=== PATIENT | female | born 1970 | race Caucasian/White ===

== ENCOUNTER 2020-05-12 00:56 | Emergency (ER) | payer OTHER ==
[~2020-05-12] VITALS: Ht 172.7 cm; Wt 87.3 kg
[2020-05-12 01:48] LABS: BASOPHILS % (AUTO) 1.1 % (0-1); EOSINOPHILS # (AUTO) 0.1 X10'3 (0-0.9); EOSINOPHILS % (AUTO) 1.5 % (0-6); HEMATOCRIT 41.2 % (35.0-45.0); HEMOGLOBIN 14.4 g/dl (12.0-16.0); LYMPHOCYTES # (AUTO) 1.6 X10'3 (1.1-4.8); LYMPHOCYTES % (AUTO) 44.7 % (21-51); MEAN CORPUSCULAR HEMOGLOBIN 36.1 PG (27.0-31.0); MEAN CORPUSCULAR HGB CONC 34.9 g/dL (33.0-36.5); MEAN CORPUSCULAR VOLUME 103.4 FL (78-98); MEAN PLATELET VOLUME 6.8 FL (7.4-10.4); MONOCYTES # (AUTO) 0.4 X10'3 (0-0.9); MONOCYTES % (AUTO) 10.5 % (2-12); NEUTROPHILS # (AUTO) 1.5 X10'3 (1.8-7.7); NEUTROPHILS % (AUTO) 42.2 % (42-75); PLATELET COUNT 106 X10'3 (140-440); RED BLOOD COUNT 3.98 X10'6 (4.20-5.60); RED CELL DISTRIBUTION WIDTH 15.9 % (11.5-14.5); WHITE BLOOD COUNT 3.7 X10'3 (4.5-11.0)
[2020-05-12 01:57] LABS: ALANINE AMINOTRANSFERASE 96 U/L (12-78); ALBUMIN 4.1 G/DL (3.4-5.0); ALBUMIN/GLOBULIN RATIO 0.9 (1.1-1.5); ALKALINE PHOSPHATASE 84 IU/L (46-116); ANION GAP 12 (8-16); ASPARTATE AMINO TRANSFERASE 146 U/L (10-37); BILIRUBIN,TOTAL 0.8 MG/DL (0.1-1.0); BLOOD UREA NITROGEN 11 MG/DL (7-18); BUN/CREATININE RATIO 14.1 (6.6-38.0); CALCIUM 9.1 MG/DL (8.5-10.1); CHLORIDE 105 MMOL/L (99-107); CREATININE 0.78 MG/DL (0.40-0.90); POTASSIUM 4.1 MMOL/L (3.5-5.1); SODIUM 142 MMOL/L (135-145); TOTAL CARBON DIOXIDE 25.5 MMOL/L (24-32); TOTAL PROTEIN 8.9 G/DL (6.4-8.2); eGFR 78 ML/MIN
[2020-05-12 02:00] LABS: GLUCOSE 93 MG/DL (70-104)
[2020-05-12 02:06] LABS: ETHANOL 0.279 GM/DL (0.0-0.010)
[2020-05-12 02:35] LABS: URINE HCG NEGATIVE (NEG)
[2020-05-12 02:46] LABS: URINE AMPHETAMINE SCREEN NEGATIVE (Neg); URINE BARBITUATE SCREEN NEGATIVE (Neg); URINE BENZODIAZEPINES SCREEN NEGATIVE (Neg); URINE CANNABINOID SCREEN NEGATIVE (Neg); URINE COCAINE SCREEN NEGATIVE (Neg); URINE METHADONE SCREEN NEGATIVE (Neg); URINE OPIATE SCREEN NEGATIVE (Neg); URINE PHENCYCLIDINE SCREEN NEGATIVE (Neg)
[2020-05-12] MEDS ORDERED: zolpidem 5mg tablet PO ONE (03:05)
--- NOTE | 2020-05-12 09:21 | NUR ---
TC FROM DR. BYNUM STATING HE WILL BE HERE TO SEE PATIENT IN APPROX. [address] WADSWORTH NOTIFIED OF THIS COMMUNICATION.
[2020-05-12] MEDS ORDERED: albuterol 2.5 MG/3 ML nebule NEB ONE (10:20)
[2020-05-12] MEDS ORDERED: LORazepam 1 MG tablet PO ONE (10:20)
--- NOTE | 2020-05-12 10:35 | NUR ---
RT IN ROOM GIVING NEBULIZER
[2020-05-12] MEDS ORDERED: gabapentin 300mg capsule PO ONE (12:20)
[2020-05-12] MEDS ORDERED: GABA300C PO (12:27)
[2020-05-12 12:47] VITALS: BP 143/101
== END 2020-05-12 12:48 | disposition home or self-care (01) ==
LOC: ER 00:57
DX: F10.20 Alcohol dependence, uncomplicated (principal); F32.9 Major depressive disorder, single episode, unspecified; F41.9 Anxiety disorder, unspecified; Z88.8 Allergy status to other drugs, medicaments and biological substances; Z79.899 Other long term (current) drug therapy; Y90.0 Blood alcohol level of less than 20 mg/100 ml
CPT/HCPCS: 36415; 80053; 80305; 80320; 81025; 84439; 84443; 85025; 94640; 94760; 99285

== ENCOUNTER 2020-05-15 15:48 | Outpatient (CLI) | payer BC ==
[~2020-05-15 15:48] MED LIST: GABA300C PO
== END 2020-05-15 23:59 | disposition home or self-care (01) ==
LOC: LAB 15:48
PROVIDERS: ATTEND Specialist
DX: E03.9 Hypothyroidism, unspecified (principal); Z53.21 Procedure and treatment not carried out due to patient leaving prior to being seen by health care provider; G47.00 Insomnia, unspecified; G62.9 Polyneuropathy, unspecified; E34.9 Endocrine disorder, unspecified

== ENCOUNTER 2020-05-15 16:03 | Outpatient (CLI) | payer BC ==
[2020-05-15 16:32] LABS: BASOPHILS % (AUTO) 0.8 % (0-1); EOSINOPHILS # (AUTO) 0.1 X10'3 (0-0.9); EOSINOPHILS % (AUTO) 1.3 % (0-6); HEMATOCRIT 41.4 % (35.0-45.0); HEMOGLOBIN 14.3 g/dl (12.0-16.0); LYMPHOCYTES # (AUTO) 1.2 X10'3 (1.1-4.8); LYMPHOCYTES % (AUTO) 21.4 % (21-51); MEAN CORPUSCULAR HEMOGLOBIN 36.1 PG (27.0-31.0); MEAN CORPUSCULAR HGB CONC 34.5 g/dL (33.0-36.5); MEAN CORPUSCULAR VOLUME 104.7 FL (78-98); MEAN PLATELET VOLUME 7.8 FL (7.4-10.4); MONOCYTES # (AUTO) 0.5 X10'3 (0-0.9); MONOCYTES % (AUTO) 9.2 % (2-12); NEUTROPHILS # (AUTO) 3.8 X10'3 (1.8-7.7); NEUTROPHILS % (AUTO) 67.3 % (42-75); PLATELET COUNT 116 X10'3 (140-440); RED BLOOD COUNT 3.96 X10'6 (4.20-5.60); RED CELL DISTRIBUTION WIDTH 16.1 % (11.5-14.5); WHITE BLOOD COUNT 5.6 X10'3 (4.5-11.0)
[2020-05-15 16:39] LABS: PARTIAL THROMBOPLASTIN TIME 28 SECONDS (22-32)
== END 2020-05-15 23:59 | disposition home or self-care (01) ==
LOC: LAB 16:03
PROVIDERS: ATTEND Otolaryngology
DX: D69.1 Qualitative platelet defects (principal); F10.20 Alcohol dependence, uncomplicated; F32.9 Major depressive disorder, single episode, unspecified; F41.9 Anxiety disorder, unspecified
CPT/HCPCS: 36415; 85025; 85576; 85610; 85730

== ENCOUNTER 2021-01-10 09:29 | Emergency (ER) | payer BC ==
[~2021-01-10] VITALS: Ht 170.2 cm; Wt 86.4 kg
[2021-01-10] MEDS ORDERED: pantoprazole 40 MG vial IV ONE (09:45)
[2021-01-10] MEDS ORDERED: normal saline 1000ml 1,000 ML IV ONE (09:45)
[2021-01-10] MEDS ORDERED: famotidine/PF 10 mg/ml inj IV ONE (09:45)
[2021-01-10] MEDS ORDERED: ondansetron/PF 4mg/2ml inj IV ONE (09:45)
--- NOTE | 2021-01-10 10:16 | NUR ---
PATIENT'S MOTHER AT BEDSIDE WHO IS GOOD WITH HER AND HELPS CALM HER YELLING OUT
[2021-01-10 10:17] LABS: BASOPHILS % (AUTO) 0.7 % (0-1); EOSINOPHILS % (AUTO) 0.9 % (0-6); HEMATOCRIT 39.1 % (35.0-45.0); HEMOGLOBIN 13.5 g/dl (12.0-16.0); LYMPHOCYTES # (AUTO) 1.5 X10'3 (1.1-4.8); MEAN CORPUSCULAR HEMOGLOBIN 36.5 PG (27.0-31.0); MEAN CORPUSCULAR HGB CONC 34.6 g/dL (33.0-36.5); MEAN CORPUSCULAR VOLUME 105.5 FL (78-98); MEAN PLATELET VOLUME 7.7 FL (7.4-10.4); MONOCYTES # (AUTO) 0.5 X10'3 (0-0.9); MONOCYTES % (AUTO) 12.1 % (2-12); NEUTROPHILS # (AUTO) 1.8 X10'3 (1.8-7.7); NEUTROPHILS % (AUTO) 47.3 % (42-75); PLATELET COUNT 60 X10'3 (140-440); RED BLOOD COUNT 3.71 X10'6 (4.20-5.60); RED CELL DISTRIBUTION WIDTH 13.6 % (11.5-14.5); WHITE BLOOD COUNT 3.9 X10'3 (4.5-11.0)
--- NOTE | 2021-01-10 10:19 | NUR ---
ELIZA CRYING PER MOTHER PATIENT HAS BEEN DRINKING "ON/OFF" FOR 30 YEARS AND HAS BEEN "SICK" FOR THE LAST THREE WEEKS LAST ETOH THIS AM AT 0800
[2021-01-10 10:22] LABS: D-DIMER 0.72 MG/L FEU (0-0.50)
[2021-01-10 10:29] LABS: ALANINE AMINOTRANSFERASE 101 U/L (12-78); ALBUMIN 3.6 G/DL (3.4-5.0); ALBUMIN/GLOBULIN RATIO 0.8 (1.1-1.5); ALKALINE PHOSPHATASE 123 IU/L (46-116); ANION GAP 12 (8-16); ASPARTATE AMINO TRANSFERASE 240 U/L (10-37); BILIRUBIN,TOTAL 1.1 MG/DL (0.1-1.0); BLOOD UREA NITROGEN 8 MG/DL (7-18); BUN/CREATININE RATIO 13.3 (6.6-38.0); CALCIUM 8.6 MG/DL (8.5-10.1); CHLORIDE 105 MMOL/L (99-107); GLUCOSE 127 MG/DL (70-104); POTASSIUM 3.8 MMOL/L (3.5-5.1); SODIUM 143 MMOL/L (135-145); TOTAL CARBON DIOXIDE 26.3 MMOL/L (24-32); eGFR > 90 ML/MIN
[2021-01-10 10:36] LABS: TROPONIN I < 0.04 NG/ML (0.0-0.05)
[2021-01-10 10:49] LABS: ETHANOL 0.451 GM/DL (0.0-0.010)
[2021-01-10 10:54] LABS: URINE AMPHETAMINE SCREEN NEGATIVE (Neg); URINE BARBITUATE SCREEN NEGATIVE (Neg); URINE BENZODIAZEPINES SCREEN NEGATIVE (Neg); URINE CANNABINOID SCREEN NEGATIVE (Neg); URINE COCAINE SCREEN NEGATIVE (Neg); URINE METHADONE SCREEN NEGATIVE (Neg); URINE OPIATE SCREEN NEGATIVE (Neg); URINE PHENCYCLIDINE SCREEN NEGATIVE (Neg)
[2021-01-10 10:57] LABS: CLARITY,URINE CLEAR (Clear); COLOR,URINE YELLOW (Yellow); GLUCOSE, URINE NEGATIVE (Neg); KETONES,URINE NEGATIVE (Neg); LEUKOCYTE ESTERASE ,URINE NEGATIVE (Neg); NITRITES, URINE NEGATIVE (Neg); OCCULT BLOOD,URINE NEGATIVE (Neg); PROTEIN,URINE NEGATIVE (Neg); UROBILINOGEN,URINE 0.2 E.U/dL (0.2-1.0)
[2021-01-10 11:01] LABS: UA COLLECTION TYPE CLN CATCH MIDSTREAM
--- NOTE | 2021-01-10 11:25 | NUR ---
Yunier castellanos in [facility] - 01/10/21 at 1125 by MANOLO KEVYN ANNE IN ROOM
[2021-01-10] MEDS ORDERED: iohexol 350MG/ML 100ml bottle IV ONE (11:53)
--- NOTE | 2021-01-10 12:25 | NUR ---
PATIENT STILL STATING "I CANT BREATHE", AWARE
--- NOTE | 2021-01-10 12:25 | NUR ---
BACK FROM CT OF CHEST
--- NOTE | 2021-01-10 12:29 | NUR ---
MOTHER CALLED AN INPATIENT FACILITY CALLED [facility] [place] [facility] [place] : A [facility] AND THE PATIENT WITH HER MOTHER DID AN INTAKE ASSESSMENT
--- NOTE | 2021-01-10 12:32 | NUR ---
MOTHER HOA NOGUEIRA CELL [phone]
--- NOTE | 2021-01-10 13:31 | NUR ---
MOTHER AT BEDSIDE. MOTHER AND PATIENT VERBALIZED UNDERSTANDING OF DISCAHRGE PLAN. PATIENT WAS SEEN FOR SOB AND ETOH INTOXICATION. PATIENT AND MOTHER WITH PATIENT'S PERMISSION GIVEN INFORMATION BOTH VERBALIZED DISCHARGE INSTRUCTIONS. PATIENT WILL FOLLOW UP WITH JORGE NAPIER AT [facility].
--- NOTE | 2021-01-10 13:34 | NUR ---
MOTHER ARRANGED FOR PATIENT TO BE TRANSPORTED FROM HER HOME TO [facility]: [phone] WITH [facility]. PATIENT IS GOING THERE THIS AFTERNOON FOR ETOH DETOX.
[2021-01-10 13:35] VITALS: BP 128/81
== END 2021-01-10 13:39 | disposition home or self-care (01) ==
LOC: ER 09:30
DX: R06.02 Shortness of breath (principal); R11.2 Nausea with vomiting, unspecified; F10.129 Alcohol abuse with intoxication, unspecified; F41.9 Anxiety disorder, unspecified; F32.9 Major depressive disorder, single episode, unspecified; Z88.8 Allergy status to other drugs, medicaments and biological substances; Z79.899 Other long term (current) drug therapy; Y90.0 Blood alcohol level of less than 20 mg/100 ml
CPT/HCPCS: 71045; 71275; 80053; 80305; 80320; 81003; 83880; 84145; 84484; 85025; 85379; 93005; 96361; 96374; 96375; 99285; C9113; J2405; J3490; J7030; Q9967

== ENCOUNTER 2021-05-09 16:51 | Emergency (ER) | payer BC ==
[2021-05-09 17:02] VITALS: BP 136/98
[2021-05-09 18:00] LABS: BASOPHILS # (AUTO) 0.1 X10'3 (0-0.2); EOSINOPHILS # (AUTO) 0.1 X10'3 (0-0.9); HEMATOCRIT 41.9 % (35.0-45.0); HEMOGLOBIN 14.7 g/dl (12.0-16.0); LYMPHOCYTES # (AUTO) 1.7 X10'3 (1.1-4.8); MEAN CORPUSCULAR HEMOGLOBIN 36.5 PG (27.0-31.0); MEAN CORPUSCULAR HGB CONC 35.2 g/dL (33.0-36.5); MEAN CORPUSCULAR VOLUME 103.8 FL (78-98); MONOCYTES # (AUTO) 0.5 X10'3 (0-0.9); MONOCYTES % (AUTO) 9.6 % (2-12); NEUTROPHILS # (AUTO) 3.1 X10'3 (1.8-7.7); NEUTROPHILS % (AUTO) 57.4 % (42-75); PLATELET COUNT 107 X10'3 (140-440); RED BLOOD COUNT 4.03 X10'6 (4.20-5.60); RED CELL DISTRIBUTION WIDTH 12.3 % (11.5-14.5); WHITE BLOOD COUNT 5.4 X10'3 (4.5-11.0)
[2021-05-09 18:08] LABS: ALANINE AMINOTRANSFERASE 84 U/L (12-78); ALBUMIN/GLOBULIN RATIO 0.9 (1.1-1.5); ALKALINE PHOSPHATASE 109 IU/L (46-116); ANION GAP 13 (8-16); ASPARTATE AMINO TRANSFERASE 174 U/L (10-37); BILIRUBIN,TOTAL 1.4 MG/DL (0.1-1.0); BLOOD UREA NITROGEN 10 MG/DL (7-18); BUN/CREATININE RATIO 15.2 (6.6-38.0); CALCIUM 8.7 MG/DL (8.5-10.1); CHLORIDE 105 MMOL/L (99-107); CREATININE 0.66 MG/DL (0.40-0.90); GLUCOSE 123 MG/DL (70-104); POTASSIUM 3.9 MMOL/L (3.5-5.1); SODIUM 143 MMOL/L (135-145); TOTAL CARBON DIOXIDE 25.4 MMOL/L (24-32); TOTAL PROTEIN 8.7 G/DL (6.4-8.2); eGFR > 90 ML/MIN
== END 2021-05-09 21:19 | disposition left against medical advice (07) ==
LOC: ER 16:52
DX: R06.02 Shortness of breath (principal); Z53.21 Procedure and treatment not carried out due to patient leaving prior to being seen by health care provider
CPT/HCPCS: 36415; 71045; 80053; 83880; 84484; 85025; 93005

== ENCOUNTER 2021-05-09 22:54 | Emergency (ER) | payer BC ==
[~2021-05-09] VITALS: Ht 172.7 cm; Wt 90.9 kg
[2021-05-09 23:06] VITALS: BP 157/100
== END 2021-05-09 23:33 | disposition left against medical advice (07) ==
LOC: ER 22:55
DX: R06.02 Shortness of breath (principal); F41.9 Anxiety disorder, unspecified; Z53.21 Procedure and treatment not carried out due to patient leaving prior to being seen by health care provider

== ENCOUNTER 2021-05-20 09:49 | Emergency (ER) | payer BC ==
[~2021-05-20] VITALS: Ht 172.7 cm; Wt 90.1 kg
[2021-05-20 09:59] VITALS: BP 139/99
[2021-05-20] MEDS ORDERED: magnesium oxide 400mg tablet PO ONE (10:20)
[2021-05-20] MEDS ORDERED: PROM12.512 PO (10:24)
== END 2021-05-20 10:40 | disposition home or self-care (01) ==
LOC: ER 09:50
DX: F10.129 Alcohol abuse with intoxication, unspecified (principal); R11.10 Vomiting, unspecified; F41.9 Anxiety disorder, unspecified; F32.9 Major depressive disorder, single episode, unspecified; Z72.89 Other problems related to lifestyle; Z88.8 Allergy status to other drugs, medicaments and biological substances; Z79.899 Other long term (current) drug therapy; Y90.9 Presence of alcohol in blood, level not specified
CPT/HCPCS: 99283

== ENCOUNTER 2021-12-24 04:15 | Emergency (ER) | payer BC, OTHER ==
[~2021-12-24] VITALS: Ht 172.7 cm; Wt 86.4 kg
[~2021-12-24 04:15] MED LIST changes: +PROM12.512 PO
[2021-12-24] MEDS ORDERED: LIDOcaine 0.5% W/epiNEPHrine 1:200,000 50ml vial IJ ONE (04:20)
[2021-12-24] MEDS ORDERED: LIDOcaine 1% w/EPI 1:100,000 30ml vial (MDV) IJ ONE (04:25)
[2021-12-24] MEDS ORDERED: LORazepam 1 MG tablet PO ONE (04:55)
[2021-12-24 04:59] VITALS: BP 143/101
--- NOTE | 2021-12-24 05:01 | NUR ---
Doctor applied Rhino rocket and gave Epi with Lidocaine during procedure. Patient tolerated well.
--- NOTE | 2021-12-24 05:21 | NUR ---
CALLED [facility] FOR PT @8331 ETA IS 40 MIN
== END 2021-12-24 05:41 | disposition home or self-care (01) ==
LOC: ER 04:16
DX: R04.0 Epistaxis (principal); F10.129 Alcohol abuse with intoxication, unspecified; R11.10 Vomiting, unspecified; F41.9 Anxiety disorder, unspecified; F32.A Depression, unspecified; Z72.89 Other problems related to lifestyle; Z88.8 Allergy status to other drugs, medicaments and biological substances; Z79.899 Other long term (current) drug therapy; Y90.9 Presence of alcohol in blood, level not specified
CPT/HCPCS: 30901; 99284; J3490

== ENCOUNTER 2021-12-25 21:06 | Emergency (ER) | payer OTHER | END 2021-12-26 00:13 | disposition left against medical advice (07) | LOC: ER 21:07 | DX: Z53.21 Procedure and treatment not carried out due to patient leaving prior to being seen by health care provider (principal) ==

== ENCOUNTER 2021-12-26 09:15 | Emergency (ER) | payer OTHER ==
[~2021-12-26] VITALS: Ht 172.7 cm; Wt 86.4 kg
[2021-12-26 09:25] VITALS: BP 146/102
[2021-12-26] MEDS ORDERED: cloNIDine 0.1 mg tablet PO ONE (09:30)
== END 2021-12-26 11:07 | disposition home or self-care (01) ==
LOC: ER 09:15
DX: Z46.2 Encounter for fitting and adjustment of other devices related to nervous system and special senses (principal); I10 Essential (primary) hypertension; R04.0 Epistaxis; J34.89 Other specified disorders of nose and nasal sinuses; R00.0 Tachycardia, unspecified; F41.9 Anxiety disorder, unspecified; F32.A Depression, unspecified; Z72.89 Other problems related to lifestyle; Z88.8 Allergy status to other drugs, medicaments and biological substances; Z79.899 Other long term (current) drug therapy
CPT/HCPCS: 99281

== ENCOUNTER 2022-06-07 07:04 | Emergency (ER) | payer OTHER ==
[~2022-06-07] VITALS: Ht 172.7 cm; Wt 86.4 kg
[~2022-06-07 07:04] MED LIST changes: +CLON-568 PO; -GABA300C PO; +LEVO112T5 PO; -PROM12.512 PO; +PROP10TA10 PO; +SECU150S2 IM; +ZOLP10TA PO
[2022-06-07] MEDS ORDERED: ondansetron/PF 4mg/2ml inj IV ONE (07:30)
[2022-06-07] MEDS ORDERED: pantoprazole 40 MG vial IV ONE (07:30)
[2022-06-07] MEDS ORDERED: etomidate 2mg/ml inj. ONE (07:30)
[2022-06-07] MEDS ORDERED: 0.9 % SODIUM CHLORIDE 10 ML VIAL ONE (07:30)
--- NOTE | 2022-06-07 07:32 | NUR ---
Pt has c-collar on, noted bruises with redness to genaralized areas of body. No obvious deformities noted. Pt connected to telemetry monitor for further observation.
[2022-06-07] MEDS ORDERED: normal saline 1000ml 1,000 ML IV SCH (07:35)
[2022-06-07] MEDS ORDERED: pantoprazole 40MG/NS 100ML BAG 100 ML IV ONE (07:40)
[2022-06-07] MEDS ORDERED: folic acid 1mg/0.2ml inj IV ONE (07:40)
[2022-06-07] MEDS ORDERED: thiamine 100mg/ml 2ml inj. IV ONE (07:40)
[2022-06-07] MEDS ORDERED: acetaminophen 325mg tablet PO ONE (07:55)
[2022-06-07] MEDS ORDERED: MVI, adult No.4 with vit. K 10 ML in dextrose 5% water 500ml 500 ML IV SCH ×2 (08:00)
[2022-06-07 08:20] LABS: BASOPHILS % (AUTO) 1.1 % (0-1); EOSINOPHILS % (AUTO) 0.3 % (0-6); HEMATOCRIT 36.7 % (35.0-45.0); HEMOGLOBIN 12.8 g/dl (12.0-16.0); LYMPHOCYTES # (AUTO) 0.9 X10'3 (1.1-4.8); LYMPHOCYTES % (AUTO) 27.2 % (21-51); MEAN CORPUSCULAR HEMOGLOBIN 36.1 PG (27.0-31.0); MEAN CORPUSCULAR HGB CONC 34.8 g/dL (33.0-36.5); MEAN CORPUSCULAR VOLUME 103.7 FL (78-98); MEAN PLATELET VOLUME 7.9 FL (7.4-10.4); MONOCYTES # (AUTO) 0.4 X10'3 (0-0.9); MONOCYTES % (AUTO) 10.6 % (2-12); NEUTROPHILS # (AUTO) 2.1 X10'3 (1.8-7.7); NEUTROPHILS % (AUTO) 60.8 % (42-75); PLATELET COUNT 52 X10'3 (140-440); RED BLOOD COUNT 3.54 X10'6 (4.20-5.60); RED CELL DISTRIBUTION WIDTH 13.6 % (11.5-14.5); WHITE BLOOD COUNT 3.5 X10'3 (4.5-11.0)
[2022-06-07 08:34] LABS: APTT 31 SECONDS (22-32)
[2022-06-07 08:39] LABS: ALANINE AMINOTRANSFERASE 58 U/L (12-78); ALBUMIN 3.4 G/DL (3.4-5.0); ALBUMIN/GLOBULIN RATIO 0.8 (1.1-1.5); ALKALINE PHOSPHATASE 130 IU/L (46-116); ANION GAP 13 (8-16); ASPARTATE AMINO TRANSFERASE 192 U/L (10-37); BILIRUBIN,TOTAL 3.8 MG/DL (0.1-1.0); BLOOD UREA NITROGEN 10 MG/DL (7-18); BUN/CREATININE RATIO 18.5 (6.6-38.0); CALCIUM 8.2 MG/DL (8.5-10.1); CHLORIDE 102 MMOL/L (99-107); CREATININE 0.54 MG/DL (0.40-0.90); GLUCOSE 96 MG/DL (70-104); POTASSIUM 4.1 MMOL/L (3.5-5.1); SODIUM 141 MMOL/L (135-145); TOTAL CARBON DIOXIDE 25.7 MMOL/L (24-32); TOTAL PROTEIN 7.9 G/DL (6.4-8.2); eGFR > 90 ML/MIN
[2022-06-07 08:41] LABS: LIPASE 232 U/L (73-393); MAGNESIUM 1.9 MG/DL (1.5-2.4)
[2022-06-07 08:42] LABS: ETHANOL 0.359 GM/DL (0.0-0.010)
--- NOTE | 2022-06-07 08:51 | NUR ---
Pt transported to CT.
--- NOTE | 2022-06-07 09:00 | NUR ---
pt back from ct. amira ocasio rn. pt completed altered and nonverbal at this time. kiah stephens made aware of pt change in mental status. per ct, scan shows that pt has large brain bleed. kiah stephens is aware and pt being moved to bed 4 for intubation and critical status
[2022-06-07] MEDS ORDERED: succinylcholine 20mg/ml inj IV ONE (09:10)
--- NOTE | 2022-06-07 09:19 | NUR ---
0914 10 ETOMIDATE 100 SUCC 128/71, 83HEART, 87% 0917 INTUBATION-BARREN 7.0 MAC 23 ETT 88HEART, 97%,
--- NOTE | 2022-06-07 09:25 | NUR ---
PT BRADYCARDIC IN 38-41 BPM. EDMD AWARE. NO NEW ORDERS
[2022-06-07 09:30] VITALS: BP 137/73
[2022-06-07 09:35] LABS: ABG BASE EXCESS -2.2 mmol/L (-2.0-2.0); ABG HCO3 22.1 mmol/L (22.0-26.0); ABG OXYGEN SATURATION 95.5 % (94-97); ABG PCO2 (T) 37.1 mmHg (32.0-45.0); ABG PO2 (T) 92.7 mmHg (75.0-100.0); ALLEN'S TEST POSITIVE; FCOHb 1.3 % (0.0-3.9); FMetHb 0.3 % (0.0-1.5); PATIENT TEMPERATURE 37.1; PEEP 5 cm H2O; RESPIRATORY RATE 22 b/min; TIDAL VOLUME 375 mL; TOTAL HEMOGLOBIN 13.7 G/dl (12.0-16.0)
--- NOTE | 2022-06-07 09:40 | NUR ---
REPORT CALLED TO JODIE GONZALEZ.
--- NOTE | 2022-06-07 09:55 | NUR ---
[facility] HERE TO TRANSPORT PT TO [facility] ER TO ER
[2022-06-07 09:59] LABS: CLARITY,URINE CLEAR (Clear); GLUCOSE, URINE NEGATIVE (Neg); KETONES,URINE 40 mg/dl (Neg); LEUKOCYTE ESTERASE ,URINE NEGATIVE (Neg); NITRITES, URINE NEGATIVE (Neg); OCCULT BLOOD,URINE MODERATE (Neg); PROTEIN,URINE 100 mg/dl (Neg)
[2022-06-07 10:09] VITALS: BP 162/87
[2022-06-07 10:19] LABS: COLOR,URINE AMBER (Yellow); UA COLLECTION TYPE NON-SPECIFIED
[2022-06-07 10:22] LABS: BACTERIA,URINE NONE SEEN /HPF (Neg); WBC,URINE 0-4 /HPF (0-4)
[2022-06-07 10:23] LABS: MUCUS STRANDS FEW /LPF (Neg); SQUAMOUS EPITHELIAL CELL,UR FEW /LPF (FEW); TRANSITIONAL EPI CELLS,URINE FEW /HPF
== END 2022-06-07 10:11 | disposition short-term general hospital (02) ==
LOC: ER 07:05
DX: S06.4X9A Epidural hemorrhage with loss of consciousness of unspecified duration, initial encounter (principal); M19.90 Unspecified osteoarthritis, unspecified site; Z88.5 Allergy status to narcotic agent; W19.XXXA Unspecified fall, initial encounter; Y93.89 Activity, other specified; Y92.89 Other specified places as the place of occurrence of the external cause; Y99.8 Other external cause status
CPT/HCPCS: 36415; 36600; 70450; 71045; 72125; 80053; 80320; 81001; 82803; 83690; 83735; 84484; 85018; 85025; 85610; 85730; 86885; 86900; 86901; 93005; 94002; 96365; 96366; 96375; 99291; C1758; C9113; J0330; J2405; J3411; J3490; J7030; A4615